=== PATIENT | female | born 1940 | race Caucasian/White ===

== ENCOUNTER 2019-08-07 19:40 | Emergency (ER) | payer MEDICARE, OTHER ==
[~2019-08-07] VITALS: Ht 157.5 cm; Wt 47.0 kg
[2019-08-07] MEDS ORDERED: LIDOcaine 1% w/EPI 1:200,000 injection 10mL vial IM ONE (20:20)
[2019-08-07] MEDS ORDERED: LIDOcaine 1% w/epiNEPHrine 1:200,000 30ml vial IM ONE (20:20)
[2019-08-07] MEDS ORDERED: TETanus/Pertussis (Acell)/Diphther VAC/PF (Tdap-Adult) 0.5ml syringe IMVAC ONE (20:20)
[2019-08-07] MEDS ORDERED: amox tr/potassium clavulanate 875/125mg TAB PO ONE (22:50)
[2019-08-07] MEDS ORDERED: AMOX-580 PO (22:57)
[2019-08-07 23:19] VITALS: BP 156/48
== END 2019-08-07 23:28 | disposition home or self-care (01) ==
LOC: ER 19:42
DX: S02.2XXA Fracture of nasal bones, initial encounter for closed fracture (principal); S01.511A Laceration without foreign body of lip, initial encounter; S01.22XA Laceration with foreign body of nose, initial encounter; F10.99 Alcohol use, unspecified with unspecified alcohol-induced disorder; Z79.899 Other long term (current) drug therapy; W01.0XXA Fall on same level from slipping, tripping and stumbling without subsequent striking against object, initial encounter; Y93.89 Activity, other specified; Y92.89 Other specified places as the place of occurrence of the external cause; Y99.8 Other external cause status; Y90.9 Presence of alcohol in blood, level not specified
CPT/HCPCS: 12013; 12014; 12051; 70450; 70486; 90471; 99285